=== PATIENT | female | born 1995 ===

== ENCOUNTER 2024-12-17 14:55 | Emergency (ER) | payer BC ==
[2024-12-17 15:17] LABS: BASOPHILS ABSOLUTE AUTO 0.04 K/uL (0.00-0.20); BASOPHILS PERCENT AUTO 0.8 % (0.0-2.0); EOSINOPHILS ABSOLUTE AUTO 0.20 K/uL (0.00-0.50); EOSINOPHILS PERCENT AUTO 4.1 % (0.0-5.0); IMMATURE GRAN ABSOLUTE AUTO 0.00 10^3/uL (0.00-0.04); IMMATURE GRAN PERCENT AUTO 0.0 % (0.0-0.4); LYMPHOCYTES ABSOLUTE AUTO 1.41 K/uL (0.50-3.50); LYMPHOCYTES PERCENT AUTO 28.7 % (10.0-50.0); MONOCYTES ABSOLUTE AUTO 0.42 K/uL (0.00-1.00); MONOCYTES PERCENT AUTO 8.5 % (2.0-14.0); NEUTROPHILS ABSOLUTE AUTO 2.85 K/uL (1.40-7.00); NEUTROPHILS PERCENT AUTO 57.9 % (45.0-80.0); PLATELET COUNT,PLT 296 K/uL (150-350); RED BLOOD CELL COUNT 4.49 M/uL (3.77-5.09); RED CELL DISTRIBUTION WIDTH 11.7 % (11.2-14.1); WHITE BLOOD CELL COUNT,WBC 4.9 K/uL (4.0-10.2)
[2024-12-17 15:37] LABS: INR 1.1 (0.9-1.1); PTT,PARTIAL THROMBOPLSTIN TIME 25.4 SEC (23.8-34.4)
[2024-12-17 15:43] LABS: CARBON DIOXIDE,CO2 29.2 mmol/L (21.0-32.0); CHLORIDE,CL 105.0 mmol/L (98-107); POTASSIUM,K 3.9 mmol/L (3.5-5.1); SODIUM,NA 143.0 mmol/L (136-145)
[2024-12-17 15:44] LABS: ALANINE AMINOTRANSFERASE,ALT 34.0 U/L (12-78); ASPARTATE AMNIOTRANSFERASE,AST 15.0 U/L (15-37); BILIRUBIN TOTAL 1.9 mg/dL (0.2-1.0); BLOOD UREA NITROGEN,BUN 15.0 mg/dL (7-18); CREATININE 0.8 mg/dL (0.51-1.17); EST CRCL DRUG DOSING (CG) 78.78 mL/min; GLUCOSE RANDOM 93.0 mg/dL (70-99); PROTEIN TOTAL,TP 8.3 g/dL (6.4-8.2)
[2024-12-17 15:45] LABS: ESTIMATED GFR 102.0 mL/min (>=60)
== END 2024-12-17 16:20 | disposition home or self-care (01) ==
LOC: LL.ED 14:55
DX: R74.01 Elevation of levels of liver transaminase levels (principal); Z79.899 Other long term (current) drug therapy; Z91.048 Other nonmedicinal substance allergy status
CPT/HCPCS: 36415; 80053; 85025; 85610; 85730; 99284